=== PATIENT | male | born 1985 | race American Indian/Alaskan Native ===

== ENCOUNTER 2017-01-13 12:13 | Emergency (ER) | payer OTHER ==
[2017-01-13] MEDS: BICILLIN L-A IM ONE (15:18)
[2017-01-13 15:37] LABS: Bilirubin,Urine NEG (Negative); Blood,Urine NEG (Negative); Ketones,Urine NEG (Negative); Leukocyte Esterase,Urine NEG (Negative); Mucus,Urine 1+ /HPF; Nitrite,Urine NEG (Negative); Urobilinogen,Urine < 2.0 mg/dL (<2.0)
[2017-01-13 15:39] LABS: Hematocrit 30.2 % (35.5-45.6); Hemoglobin 9.8 gm/dl (11.8-15.2); Mean Corpuscular HGB Conc 33 % (32-34); Mean Corpuscular Hemoglobin 28 pg (28-32); Mean Corpuscular Volume 85 fl (84-94); Platelet Count 271 K/mm3 (140-440); Red Blood Count 3.55 M/mm3 (3.65-5.03); Red Cell Distribution Width 14.7 % (13.2-15.2); White Blood Count 5.1 K/mm3 (4.5-11.0)
[2017-01-13 15:51] LABS: Anion Gap 14 mmol/L; Blood Urea Nitrogen 8 mg/dL (9-20); Calcium 9.1 mg/dL (8.4-10.2); Carbon Dioxide 25 mmol/L (22-30); Chloride 97.6 mmol/L (98-107); Glucose 86 mg/dL (75-100); Potassium 3.5 mmol/L (3.6-5.0); Sodium 133 mmol/L (137-145)
[2017-01-13] MEDS: ROCEPHIN IM ONE (15:53)
[2017-01-13] MEDS: FLAGYL PO ONE (15:53)
[2017-01-13] MEDS: XYLOCAINE 1% MPF 5 mL INFILTRATI ONE (15:53)
[2017-01-13] MEDS: ZITHROMAX PO ONE (15:53)
--- NOTE | 2017-01-13 16:40 | Emergency Department Report ---
Entered by MASON VENEGAS, acting as scribe for SADI CASTELLANO PA. ED Male HPI - General Chief complaint: Urogenital-Male Stated complaint: HBP/SYPHILITIC LESION Time Seen by Provider: 01/13/17 14:48 Source: patient Mode of arrival: Ambulatory Limitations: No Limitations - History of Present Illness Initial comments: 31 year old male presents to the ED for evaluation of lesion to shaft of penis for 2 weeks. Patient reports small amount of non odorous discharge from lesion but notes lesion is not painful. He reports sexual partner tested positive for syphilis. Patient was seen at [facility] earlier today; states full STD panel and cultures were performed but was sent to this ED for evaluation and treatment for suspected syphilis. Patient does not have a PCP MD Complaint: other (lesion on shaft of penis) -: week(s) (2 ) Location: penis Radiation: none Severity: mild Severity scale (0 -10): 0 Improves with: none Worsens with: none discharge. denies: blood in urine, dysuria, fever, other (pain) - Related Data Sexually active: Yes (sexual partner tested positive for syphilis) Previous Rx's Medication Instructions Recorded Last Taken Type Hydrochlorothiazide [Hctz] 12.5 mg PO QDAY #30 capsule 01/13/17 Unknown Rx amLODIPine [Norvasc] 5 mg PO DAILY #30 tab 01/13/17 Unknown Rx Allergies Allergy/AdvReac Type Severity Reaction Status Date / Time No Known Allergies Allergy Verified 01/13/17 12:36 ED Review of Systems Comment: All other systems reviewed and negative Constitutional: denies: chills, fever Respiratory: denies: shortness of breath Cardiovascular: denies: chest pain, edema Gastrointestinal: denies: abdominal pain Genitourinary: other (lesion with discharge to shaft of penis). denies: urgency , dysuria, frequency, hematuria, testicular pain Skin: lesions (to shaft of penis) ED Past Medical Hx - Past Medical History Hx Hypertension: Yes - Surgical History Additional Surgical History: hernia repair - Social History Smoking Status: Never Smoker Substance Use Type: Alcohol - Medications Home Medications: Home Medications Medication Instructions Recorded Confirmed Last Taken Type Hydrochlorothiazide [Hctz] 12.5 mg PO QDAY #30 capsule 01/13/17 Unknown Rx amLODIPine [Norvasc] 5 mg PO DAILY #30 tab 01/13/17 Unknown Rx ED Physical Exam - General Limitations: No Limitations General appearance: alert, in no apparent distress, obese - Head Head exam: Present: atraumatic, normocephalic - Eye Eye exam: Present: normal appearance, PERRL, EOMI - ENT ENT exam: Present: normal orophraynx, mucous membranes moist - Neck Neck exam: Present: normal inspection, full ROM. Absent: lymphadenopathy, thyromegaly - Respiratory Respiratory exam: Present: normal lung sounds bilaterally. Absent: respiratory distress, wheezes, rales, rhonchi - Cardiovascular Cardiovascular Exam: Present: regular rate, normal rhythm, normal heart sounds - GI/Abdominal GI/Abdominal exam: Present: soft. Absent: distended, tenderness, guarding, rebound - External exam: Present: lesions (ulcerated lesion to inferior shaft of penis. Lesion is flat and moist with minimal amount of dishcarge), other (Global Creative Chairman present during exam) - Extremities Exam Extremities exam: Present: normal inspection, full ROM - Back Exam Back exam: Present: normal inspection. Absent: CVA tenderness (R), CVA tenderness (L) - Neurological Exam Neurological exam: Present: alert, altered, oriented X3, normal gait - Psychiatric Psychiatric exam: Present: normal affect, normal mood - Skin Skin exam: Present: other (ulcerated lesion to inferior shaft of penis. Lesion is flat and moist with minimal amount of dishcarge. Skin is otherwise normal; warm, dry and intact) ED Course Vital Signs 01/13/17 12:31 Temperature 98.3 F Pulse Rate 86 Respiratory 18 Rate Blood Pressure 182/116 O2 Sat by Pulse 100 Oximetry ED Medical Decision Making - Lab Data Result diagrams: 01/13/17 15:22 01/13/17 15:22 - Medical Decision Making After detailed patient history and exam, clincial impresssion of lesion is consistent with syphilitic lesion. Patient reported lesion is non-painful with drainage and sexual contact with known syphilis positive partner. Patient was seen at [facility] where STD panel and cultures were performed earlier today. Patient was empirically treated for syphilis, gonorrhea, and trichomoniasis with PCN 2.4 units IM and Ceftriaxone Sodium 250 mg IM. CBC and CMP were ordered to evaluate renal function as patient was hypertensive in the ED. Discussed importance of follow up with a primary care provider to monitor blood pressure with patient ED Disposition Clinical Impression: Syphilis in male, Elevated blood pressure Disposition: DISCHARGED TO HOME OR SELFCARE Is pt being admited?: No Does the pt Need Aspirin: No Condition: Stable Instructions: Syphilis (ED), Sexually Transmitted Diseases (ED), Safe Sex (ED) Prescriptions: amLODIPine [Norvasc] 5 mg PO DAILY #30 tab Hydrochlorothiazide [Hctz] 12.5 mg PO QDAY #30 capsule Referrals: PRIMARY CAREMD [Primary Care Provider] - 3-5 Days EVELIA AVELAR MD [Staff Physician] - 3-5 Days JOEL CHEATHAM MD [Staff Physician] - 3-5 Days Forms: Work/School Release Form(ED) This documentation as recorded by the leoncioibRUBI mendiola REBEKAH,accurately reflects the service I personally performed and the decisions made by ,SADI CASTELLANO PA.
[2017-01-13 16:42] VITALS: BP 184/110
== END 2017-01-13 16:42 | disposition home or self-care (01) ==
LOC: ED 12:13
DX: A53.9 Syphilis, unspecified (principal); I10 Essential (primary) hypertension
CPT/HCPCS: 36415; 80048; 81001; 85027; 96372; 99283; J0561; J0696

== ENCOUNTER 2018-02-10 06:00 | Emergency (ER) | payer OTHER ==
--- NOTE | 2018-02-10 08:20 | Emergency Department Report ---
ED Male HPI - General Chief complaint: Rectal Pain Stated complaint: BUTT PAIN Time Seen by Provider: 02/10/18 08:01 Source: patient Mode of arrival: Ambulatory Limitations: No Limitations - History of Present Illness Initial comments: Patient is a 32-year-old male with a history of hemorrhoids who presents to ED complaining of constipation 2 weeks. Patient states that about 3 weeks ago he started gets constipated and has been straining. Patient states the past couple of days seen private rate blood tinged with his stools. Patient states he has regular bowel movement. Patient denies rectal pain, swelling, fever, abdominal pain, Patient states that he had use preparation H with no relief. - Related Data Previous Rx's Medication Instructions Recorded Last Taken Type Hydrochlorothiazide [Hctz] 12.5 mg PO QDAY #30 capsule 01/13/17 Unknown Rx amLODIPine [Norvasc] 5 mg PO DAILY #30 tab 01/13/17 Unknown Rx Docusate Sodium [Colace] 100 mg PO BID PRN #30 capsule 02/10/18 Unknown Rx Hydrocortisone [Anucort-HC SUPPOS] 25 mg RC BID #30 supp.rect 02/10/18 Unknown Rx Allergies Allergy/AdvReac Type Severity Reaction Status Date / Time No Known Allergies Allergy Verified 01/13/17 12:36 ED Review of Systems ROS: Stated complaint: BUTT PAIN Other details as noted in HPI Constitutional: denies: chills, fever Eyes: denies: eye pain, eye discharge, vision change ENT: denies: ear pain, throat pain Respiratory: denies: cough, shortness of breath, wheezing Cardiovascular: denies: chest pain, palpitations Endocrine: no symptoms reported Gastrointestinal: constipation. denies: abdominal pain, nausea, vomiting, diarrhea Genitourinary: denies: urgency, dysuria, frequency, hematuria, discharge, testicular pain, testicular mass Musculoskeletal: denies: back pain, joint swelling, arthralgia Skin: denies: rash, lesions Neurological: denies: headache, weakness, paresthesias Psychiatric: denies: anxiety, depression Hematological/Lymphatic: denies: easy bleeding, easy bruising ED Past Medical Hx - Past Medical History Previous Medical History?: No Hx Hypertension: Yes - Surgical History Past Surgical History?: Yes Additional Surgical History: hernia repair - Social History Smoking Status: Never Smoker Substance Use Type: None - Medications Home Medications: Home Medications Medication Instructions Recorded Confirmed Last Taken Type Hydrochlorothiazide [Hctz] 12.5 mg PO QDAY #30 capsule 01/13/17 Unknown Rx amLODIPine [Norvasc] 5 mg PO DAILY #30 tab 01/13/17 Unknown Rx Docusate Sodium [Colace] 100 mg PO BID PRN #30 capsule 02/10/18 Unknown Rx Hydrocortisone [Anucort-HC SUPPOS] 25 mg RC BID #30 supp.rect 02/10/18 Unknown Rx ED Physical Exam - General Limitations: No Limitations General appearance: alert, in no apparent distress - Head Head exam: Present: atraumatic, normocephalic - Eye Eye exam: Present: normal appearance - ENT ENT exam: Present: mucous membranes moist - Neck Neck exam: Present: normal inspection - Respiratory Respiratory exam: Present: normal lung sounds bilaterally. Absent: respiratory distress - Cardiovascular Cardiovascular Exam: Present: regular rate, normal rhythm. Absent: systolic murmur, diastolic murmur, rubs, gallop - GI/Abdominal GI/Abdominal exam: Present: soft, normal bowel sounds. Absent: distended, tenderness, guarding, rebound, rigid - Rectal Rectal exam: Present: deferred, normal rectal tone, normal prostate, other (2 lang anal lesions consistent with warts at 9 and 10 o clock). Absent: bloody stool, hemorrhoids, mass, tenderness - exam: Present: normal inspection External exam: Present: normal external exam - Extremities Exam Extremities exam: Present: normal inspection - Back Exam Back exam: Present: normal inspection - Neurological Exam Neurological exam: Present: alert, oriented X3 - Psychiatric Psychiatric exam: Present: normal affect, normal mood - Skin Skin exam: Present: warm, dry, intact, normal color. Absent: rash ED Course Vital Signs 02/10/18 02/10/18 06:01 07:55 Temperature 98.3 F 98.9 F Pulse Rate 96 H 82 Respiratory 18 16 Rate Blood Pressure 175/119 Blood Pressure 158/104 [Left] O2 Sat by Pulse 99 100 Oximetry ED Medical Decision Making - Medical Decision Making 32-year-old male presents with constipation with possible internal hemorrhoids ED course: I discussed with patient to follow up with his primary care physician I also discussed the patient a venetian blind worker referral is needed to make an appointment if symptoms persist. I discussed the patient and his reach fiber diet to prevent constipation and hemorrhoid exacerbation. I discussed with the patient upon my examination the perianal lesions could be causing the bleed due to no hemorrhoids seen. I discussed the patient given suppositories for his hemorrhoids and referred him to STD clinic to be tested for HPV or HSV I discussed with patient if he has any worsening symptoms such as rectal pain or swelling to return to ED Vital signs are normal patient is in no acute distress Critical care attestation.: If time is entered above; I have spent that time in minutes in the direct care of this critically ill patient, excluding procedure time. ED Disposition Clinical Impression: Internal hemorrhoids without complication Hemorrhoid Qualifiers: Hemorrhoid type: unspecified Qualified Code(s): K64.9 - Unspecified hemorrhoids Disposition: TO HOME OR SELFCARE Is pt being admited?: No Does the pt Need Aspirin: No Condition: Stable Instructions: Hemorrhoids (ED), Rectal Bleeding (ED), Genital Warts (ED), Genital Herpes Simplex (ED), High Fiber Diet (ED) Additional Instructions: Make sure to follow up with the primary care physician as discussed. Take all your medications as you've been prescribed. If you have any worsening symptoms or develop new symptoms please return to ED immediately. Prescriptions: Docusate Sodium [Colace] 100 mg PO BID PRN #30 capsule PRN Reason: Constipation Hydrocortisone [Anucort-HC SUPPOS] 25 mg RC BID #30 supp.rect Referrals: JOHNNY KENNEDY MD [Primary Care Provider] - 3-5 Days [facility] [Provider Group] - 3-5 Days [facility] [Provider Group] - 3-5 Days [facility] [Outside] - 3-5 Days [facility] [Outside] - 3-5 Days Forms: Work/School Release Form(ED) Time of Disposition: 08:52
[2018-02-10 09:17] VITALS: BP 150/96
== END 2018-02-10 09:14 | disposition home or self-care (01) ==
LOC: ED 06:00
DX: K64.8 Other hemorrhoids (principal); K59.00 Constipation, unspecified; I10 Essential (primary) hypertension
CPT/HCPCS: 99282

== ENCOUNTER 2018-07-05 20:14 | Emergency (ER) | payer OTHER ==
[2018-07-05] MEDS ORDERED: NACL 0.9% 1000 ML 1,000 ML IV ONE (20:40)
[2018-07-05 21:13] LABS: Basophils % (Auto) 0.4 % (0.0-1.8); Eosinophils % (Auto) 0.8 % (0.0-4.3); Hematocrit 28.2 % (35.5-45.6); Hemoglobin 9.6 gm/dl (11.8-15.2); Lymphocytes # (Auto) 1.3 K/mm3 (1.2-5.4); Mean Corpuscular HGB Conc 34 % (32-34); Mean Corpuscular Hemoglobin 28 pg (28-32); Mean Corpuscular Volume 82 fl (84-94); Monocytes # (Auto) 0.7 K/mm3 (0.0-0.8); Monocytes % (Auto) 11.8 % (0.0-7.3); Platelet Count 235 K/mm3 (140-440); Red Blood Count 3.45 M/mm3 (3.65-5.03); Red Cell Distribution Width 13.8 % (13.2-15.2)
[2018-07-05 21:16] LABS: INR 1.06 (0.87-1.13)
[2018-07-05 21:17] LABS: Partial Thromboplastin Time 26.9 Sec. (24.2-36.6)
[2018-07-05 21:26] LABS: Alanine Aminotransferase 18 units/L (7-56); Albumin 3.7 g/dL (3.9-5); BUN/Creatinine Ratio 17; Blood Urea Nitrogen 10 mg/dL (9-20); Calcium 9.2 mg/dL (8.4-10.2); Hemolysis Index 15; Lipase 33 units/L (13-60)
[2018-07-05] MEDS ORDERED: K-DUR PO ONE (21:33)
--- NOTE | 2018-07-05 21:36 | Emergency Department Report ---
HPI - General Chief Complaint: GI Bleed Time Seen by Provider: 07/05/18 21:16 - HPI HPI: 33-year-old -Faro[place] male presents to the emergency department with a complaint of a 2.5 week history of some rectal bleeding. He says that it mostly occurs with bowel movements but sometimes he will feel like he has a bowel movement and it is just blood. He denies any abdominal pain, rectal pain. However the patient also complains of some "inflammation" that appears to be his description for some discharge that is also coming from the rectum. Patient says that he does engage in anal sex but it has been with one monogamous partner but they do not always use protection. He has not taken anything for her symptoms prior to presentation. Denies any past medical history. He does not have a primary care physician. ED Past Medical Hx - Past Medical History Hx Hypertension: Yes - Surgical History Additional Surgical History: hernia repair - Social History Smoking Status: Never Smoker Substance Use Type: None - Medications Home Medications: Home Medications Medication Instructions Recorded Confirmed Last Taken Type amLODIPine [Norvasc] 5 mg PO DAILY #30 tab 01/13/17 Unknown Rx hydroCHLOROthiazide [Hctz] 12.5 mg PO QDAY #30 capsule 01/13/17 Unknown Rx Docusate Sodium [Colace] 100 mg PO BID PRN #30 capsule 02/10/18 Unknown Rx Hydrocortisone [Anucort-HC SUPPOS] 25 mg RC BID #30 supp.rect 02/10/18 Unknown Rx Doxycycline [Vibramycin CAP] 100 mg PO Q12HR #14 capsule 07/05/18 Unknown Rx ED Review of Systems ROS: Stated complaint: BLOOD IN STOOL Other details as noted in HPI Comment: All other systems reviewed and negative Constitutional: denies: chills, fever Eyes: denies: eye pain, eye discharge, vision change ENT: denies: ear pain, throat pain Respiratory: denies: cough, shortness of breath, wheezing Cardiovascular: denies: chest pain, palpitations Gastrointestinal: other (rectal bleeding). denies: abdominal pain, vomiting Genitourinary: denies: urgency, dysuria Musculoskeletal: denies: back pain, joint swelling, arthralgia Skin: denies: rash, lesions Neurological: denies: headache, weakness, paresthesias Physical Exam - Physical Exam Vital Signs: Vital Signs 09/04/18 20:35 Temperature 99.5 F Pulse Rate 87 Respiratory 16 Rate Blood Pressure 152/97 O2 Sat by Pulse 100 Oximetry Physical Exam: GENERAL: The patient is well-developed well-nourished. HENT: Normocephalic. Atraumatic. Patient has moist mucous membranes. EYES: Extraocular motions are intact. Pupils equal reactive to light bilaterally. NECK: Supple. Trachea is midline. CHEST/LUNGS: Clear to auscultation. There is no respiratory distress noted. HEART/CARDIOVASCULAR: Regular. There is no tachycardia. There is no murmur. ABDOMEN: Abdomen is soft, nontender. Patient has normal bowel sounds. There is no abdominal distention. SKIN: Skin is warm and dry. NEURO: The patient is awake, alert, and oriented. The patient is cooperative. The patient has no focal neurologic deficits. The patient has normal speech. MUSCULOSKELETAL: There is no tenderness or deformity. There is no limitation range of motion. There is no evidence of acute injury. RECTAL: No gross blood. Stool is mildly positive on guaiac testing. There appears to be a nonthrombosed external hemorrhoid around to the 5 o'clock position. There are many small nontender growths around the rectum and anus concerning for HPV. There is a small amount of whitish yellow discharge seen around the rectum. ED Course Vital Signs 07/05/18 20:35 Temperature 99.5 F Pulse Rate 87 Respiratory 16 Rate Blood Pressure 152/97 O2 Sat by Pulse 100 Oximetry ED Medical Decision Making - Lab Data Result diagrams: 07/05/18 20:45 07/05/18 20:45 - Radiology Data Radiology results: image reviewed interpreted by me: Abdominal x-ray shows nonspecific nonobstructive bowel gas - Medical Decision Making Patient comes in with a 2.5 week history of some rectal bleeding. On examination there is no gross blood. Very small amount of stool obtained on rectal examination that was mildly positive on guaiac testing. He had a single nonthrombosed hemorrhoid externally. However there was also any small flesh- colored growths around the rectum and anal region. These could be skin tags but also gave me concern for possible HPV. There is some mild discharge seen. No area of fluctuance or any perianal abscess visible or palpable. Vital signs stable throughout his ED course. Labs are mostly unremarkable. He has some anemia but it is consistent with previous visits. Patient will be placed on doxycycline to cover gonorrhea and Chlamydia empirically. He was given a referral for the health department for HIV and HPV testing. He was given gastroenterology referral for his rectal bleeding. He has been instructed to return to the emergency Department with any worsening of symptoms or any acute distress. - Differential Diagnosis hemorrhoid, malignancy, HPV, abscess Critical Care Time: No Critical care attestation.: If time is entered above; I have spent that time in minutes in the direct care of this critically ill patient, excluding procedure time. ED Disposition Clinical Impression: Rectal discharge, Rectal bleeding, Rectal lesion Disposition: TO HOME OR SELFCARE Is pt being admited?: No Condition: Stable Instructions: Rectal Bleeding (ED) Additional Instructions: Please follow up with a primary care physician in the next few days. I have given you a referral for a local beaming machine operator, Dr. Gomes, to follow up regarding your rectal bleeding. I have also given you a referral for the local health department for further STD testing including HIV, HPV. Take the antibiotics as prescribed. Return to the emergency Department with any worsening of your symptoms or any acute distress. Please avoid any sexual intercourse or contact until completion of the antibiotics and you have had further testing. Prescriptions: Doxycycline [Vibramycin CAP] 100 mg PO Q12HR #14 capsule Referrals: ELIDA GOMES MD [Staff Physician] - 2-3 Days [facility] [Outside] - 2-3 Days MINOR RUDOLPH JR, MD [Staff Physician] - 2-3 Days Time of Disposition: 23:18
[2018-07-05 21:49] VITALS: BP 144/87
--- NOTE | 2018-07-05 23:02 | XRay Report ---
FINAL REPORT PROCEDURE: XR ABDOMEN 2V TECHNIQUE: Upright and supine AP views of the abdomen HISTORY: Abd pain COMPARISON: No prior studies are available for comparison. FINDINGS: The bowel gas pattern is nonobstructive. No abnormal calcifications are seen. No focal osseous lesions. No evidence of free intraperitoneal air. IMPRESSION: Unremarkable bowel gas pattern
[2018-07-05] MEDS ORDERED: VIBRAMYCIN PO ONE (23:20)
== END 2018-07-05 23:38 | disposition home or self-care (01) ==
LOC: ED 20:14
DX: K62.5 Hemorrhage of anus and rectum (principal); I10 Essential (primary) hypertension; Z79.899 Other long term (current) drug therapy
CPT/HCPCS: 36415; 74019; 80053; 83690; 85025; 85610; 85730; 86850; 86900; 86901; 93005; 93010

== ENCOUNTER 2019-07-30 12:37 | Emergency (ER) | payer OTHER ==
[2019-07-30] MEDS ORDERED: ONDANSETRON 4 MG/2 ML INJ IV ONE (12:58)
[2019-07-30] MEDS ORDERED: SODIUM CHLORIDE 0.9% 1000 ML 1,000 ML IV ONE (12:58)
--- NOTE | 2019-07-30 13:01 | Emergency Department Report ---
ED N/V/D HPI - General Chief complaint: Nausea/Vomiting/Diarrhea Stated complaint: DIARRHEA/STOMACH PAIN Time Seen by Provider: 07/30/19 12:54 Source: patient Mode of arrival: Ambulatory Limitations: No Limitations - History of Present Illness Initial comments: Patient is 34 years old male with history of hypertension, noncompliant with medication. Patient presented to the ER complaining of nausea, vomiting and diarrhea for the last 3 days. Patient stated that symptoms started after he ate left over food, 3 days ago. Patient is complaining of crampy abdominal pain on and off. Patient denied any fever or chills. MD complaint: nausea, vomiting, diarrhea -: days(s) (3) Description of Vomiting: food contents Description of Diarrhea: water Associated Abdominal Pain: Yes Location: diffuse Quality: cramping Context: possible food poisoning - Related Data Previous Rx's Medication Instructions Recorded Last Taken Type amLODIPine [Norvasc] 5 mg PO DAILY #30 tab 01/13/17 Unknown Rx hydroCHLOROthiazide [Hctz] 12.5 mg PO QDAY #30 capsule 01/13/17 Unknown Rx Docusate Sodium [Colace] 100 mg PO BID PRN #30 capsule 02/10/18 Unknown Rx Hydrocortisone [Anucort-HC SUPPOS] 25 mg RC BID #30 supp.rect 02/10/18 Unknown Rx DOXYCYCLINE Hyclate [Vibramycin 100 mg PO Q12HR #14 capsule 07/05/18 Unknown Rx CAP] Allergies Allergy/AdvReac Type Severity Reaction Status Date / Time No Known Allergies Allergy Verified 01/13/17 12:36 ED Review of Systems ROS: Stated complaint: DIARRHEA/STOMACH PAIN Other details as noted in HPI Comment: All other systems reviewed and negative Constitutional: denies: chills, fever Respiratory: denies: cough, shortness of breath, SOB with exertion Cardiovascular: denies: chest pain, palpitations Gastrointestinal: abdominal pain, nausea, vomiting, diarrhea Genitourinary: denies: dysuria Musculoskeletal: denies: back pain ED Past Medical Hx - Past Medical History Previous Medical History?: Yes Hx Hypertension: Yes - Surgical History Past Surgical History?: Yes Additional Surgical History: hernia repair - Social History Smoking Status: Never Smoker Substance Use Type: Alcohol - Medications Home Medications: Home Medications Medication Instructions Recorded Confirmed Last Taken Type amLODIPine [Norvasc] 5 mg PO DAILY #30 tab 01/13/17 Unknown Rx hydroCHLOROthiazide [Hctz] 12.5 mg PO QDAY #30 capsule 01/13/17 Unknown Rx Docusate Sodium [Colace] 100 mg PO BID PRN #30 capsule 02/10/18 Unknown Rx Hydrocortisone [Anucort-HC SUPPOS] 25 mg RC BID #30 supp.rect 02/10/18 Unknown Rx DOXYCYCLINE Hyclate [Vibramycin 100 mg PO Q12HR #14 capsule 07/05/18 Unknown Rx CAP] ED Physical Exam - General Limitations: No Limitations General appearance: alert, in no apparent distress - Head Head exam: Present: atraumatic, normocephalic, normal inspection - Eye Eye exam: Present: normal appearance, PERRL - ENT ENT exam: Present: mucous membranes dry - Neck Neck exam: Present: normal inspection, full ROM. Absent: tenderness, meningismus, lymphadenopathy, thyromegaly - Respiratory Respiratory exam: Present: normal lung sounds bilaterally - Cardiovascular Cardiovascular Exam: Present: regular rate, normal rhythm, normal heart sounds - GI/Abdominal GI/Abdominal exam: Present: soft, normal bowel sounds. Absent: distended, tenderness, guarding, rebound, rigid, diminished bowel sounds, organomegaly, mass, bruit, pulsatile mass, hernia - Extremities Exam Extremities exam: Present: normal inspection, full ROM, normal capillary refill. Absent: tenderness, pedal edema, calf tenderness - Back Exam Back exam: Present: normal inspection, full ROM. Absent: CVA tenderness (R), C VA tenderness (L), muscle spasm, paraspinal tenderness, vertebral tenderness - Neurological Exam Neurological exam: Present: alert, oriented X3, CN II-XII intact, normal gait, reflexes normal - Psychiatric Psychiatric exam: Present: normal mood - Skin Skin exam: Present: warm, intact, normal color ED Course Vital Signs 07/30/19 07/30/19 12:47 14:30 Temperature 98.5 F Pulse Rate 64 74 Respiratory 22 16 Rate Blood Pressure 104/71 Blood Pressure 125/84 [Left] O2 Sat by Pulse 99 94 Oximetry ED Medical Decision Making - Lab Data Result diagrams: 07/30/19 13:04 07/30/19 13:04 - Medical Decision Making Patient is 34 years old male with history of hypertension, noncompliant with medication. Patient presented to the ER complaining of nausea, vomiting and diarrhea for the last 3 days. Patient stated that symptoms started after he ate left over food, 3 days ago. Patient is complaining of crampy abdominal pain on and off. Patient denied any fever or chills. Patient received normal saline 1 L and Zofran 4 mg. Patient stated that he is feeling much better. No nausea or vomiting noticed. Patient denying any abdominal pain. Patient advised to follow-up with his primary care physician in the next 2-3 days and to attend ER if symptoms are not improved. Critical care attestation.: If time is entered above; I have spent that time in minutes in the direct care of this critically ill patient, excluding procedure time. ED Disposition Clinical Impression: Nausea and vomiting, Abdominal pain Disposition: - TO HOME OR SELFCARE Is pt being admited?: No Condition: Stable Instructions: Abdominal Pain (ED), Acute Nausea and Vomiting (ED) Referrals: PRIMARY CARE, [Primary Care Provider] - 3-5 Days
[2019-07-30 13:57] LABS: Albumin 4.6 g/dL (3.9-5); Calcium 9.2 mg/dL (8.4-10.2)
[2019-07-30 14:14] LABS: Basophils % (Auto) 0.1 % (0.0-1.8); Eosinophils # (Auto) 0.1 K/mm3 (0.0-0.4); Eosinophils % (Auto) 1.1 % (0.0-4.3); Hematocrit 37.2 % (35.5-45.6); Hemoglobin 12.3 gm/dl (11.8-15.2); Lymphocytes # (Auto) 2.2 K/mm3 (1.2-5.4); Lymphocytes % (Auto) 21.5 % (13.4-35.0); Mean Corpuscular HGB Conc 33 % (32-34); Mean Corpuscular Volume 85 fl (84-94); Monocytes # (Auto) 1.2 K/mm3 (0.0-0.8); Monocytes % (Auto) 11.8 % (0.0-7.3); Platelet Count 226 K/mm3 (140-440); Red Blood Count 4.36 M/mm3 (3.65-5.03)
[2019-07-30 14:40] VITALS: BP 125/84
[2019-07-30 15:52] LABS: Bacteria,Urine 1+ /HPF (Negative); Bilirubin,Urine NEG (Negative); Blood,Urine SM (Negative); Color,Urine Amber (Yellow); Hyaline Casts,Urine 40 /LPF; Mucus,Urine 3+ /HPF; Urobilinogen,Urine < 2.0 mg/dL (<2.0)
[2019-07-30 15:57] LABS: Protein,Urine >500 mg/dL (Negative)
== END 2019-07-30 17:11 | disposition home or self-care (01) ==
LOC: ED 12:37
DX: R11.2 Nausea with vomiting, unspecified (principal); R10.84 Generalized abdominal pain; R19.7 Diarrhea, unspecified; I10 Essential (primary) hypertension; Z79.899 Other long term (current) drug therapy
CPT/HCPCS: 36415; 80053; 81001; 83690; 85025; 87086; 96361; 96374; 99283; J2405; J7030